=== PATIENT | male | born 1960 | race Caucasian/White ===

== ENCOUNTER 2018-09-17 08:58 | Emergency (ER) | payer OTHER ==
[~2018-09-17] VITALS: Ht 165.1 cm; Wt 65.8 kg
[~2018-09-17 08:58] MED LIST: ASPI-1718 PO; BACL10TA4 PO; ENAL-197 PO; NAPR-54 PO; ORE25 PO; PANT40EC PO
--- NOTE | 2018-09-17 08:58 | NUR ---
PATIENT BIB EMS TO BED 8 AT THIS TIME.
[2018-09-17 09:00] VITALS: BP 115/64
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
--- NOTE | 2018-09-17 09:28 | NUR ---
DR HALE AT BEDSIDE FOR PT EVALUATION
--- NOTE | 2018-09-17 10:10 | NUR ---
PT SITTING UP. AAO X4, FULL CLEAR SPEECH. FOOD TRAY FOR LUNCH PROVIDED.
--- NOTE | 2018-09-17 11:15 | NUR ---
PT AAO X4, FULL CLEAR SPEECH. PT SITTING UP EATING LUNCH. PT TOLERATING FOOD WELL.
--- NOTE | 2018-09-17 11:45 | NUR ---
PT UNABLE TO STAND AT THIS TIME. PT BACK TO BED.
[2018-09-17 13:13] VITALS: BP 106/65
== END 2018-09-17 13:17 | disposition home or self-care (01) ==
LOC: MED 08:58
DX: F10.129 Alcohol abuse with intoxication, unspecified (principal); Z95.0 Presence of cardiac pacemaker; Z79.82 Long term (current) use of aspirin; Z79.1 Long term (current) use of non-steroidal anti-inflammatories (NSAID); Z79.899 Other long term (current) drug therapy; Y90.9 Presence of alcohol in blood, level not specified
CPT/HCPCS: 82948; 93005; 99283

== ENCOUNTER 2018-09-18 10:03 | Inpatient (IN) | payer OTHER ==
[~2018-09-18] VITALS: Ht 167.6 cm; Wt 88.5 kg
--- NOTE | 2018-09-18 10:03 | NUR ---
Patient BAL MCDONOUGH, triaged by RN and transferred to ED lobby to wait for an available bed.
[2018-09-18 10:11] VITALS: BP 104/59
--- NOTE | 2018-09-18 10:33 | NUR ---
PT TO ED WITH C/O L LEG PAIN. DENIES INJURY OR TRAUMA. NO DEFORMITY NOTED. CMS INTACT. PT REPORTS BEING SEEN YESTERDAY IN ED FOR SAME C/C BUT UNABLE TO RECALL TREATMENT. PT PLACED INTO BED, PENDING MD KINGSLEY.
[2018-09-18] MEDS ORDERED: NACL 0.9% 1,000 ML IV ONE (11:22)
[2018-09-18] MEDS ORDERED: MULTIVITAMIN-12 10 ML, THIAMINE 100 MG, MAGNESIUM SULFATE 50% 2,000 MG, FOLIC ACID 5 MG... IV ONE ×5 (11:22)
[2018-09-18] MEDS ORDERED: MULTIVITAMIN-12 10 ML, THIAMINE 100 MG, MAGNESIUM SULFATE 50% 2,000 MG, FOLIC ACID 5 MG... IV SCH ×5 (11:45)
[2018-09-18 12:01] LABS: BASOPHILS # (AUTO) 0.1 K/uL (0.00-0.22); BASOPHILS % (AUTO) 0.7 % (0.0-2.0); EOSINOPHILS # (AUTO) 0.1 K/uL (0-0.4); HEMATOCRIT 40.3 % (36-52); LYMPHOCYTES # (AUTO) 1.3 K/uL (2.0-11.5); LYMPHOCYTES % (AUTO) 16.2 % (20.5-51.1); MEAN CORPUSCULAR HEMOGLOBIN 25 pg (27-31); MEAN CORPUSCULAR HGB CONC 32 g/dL (33-37); MEAN CORPUSCULAR VOLUME 75.9 fL (80-94); MONOCYTES # (AUTO) 0.6 K/uL (0.8-1.0); MONOCYTES % (AUTO) 7.3 % (1.7-9.3); NEUTROPHILS # (AUTO) 6.1 K/uL (1.8-7.7); NEUTROPHILS % (AUTO) 74.8 % (42.2-75.2); PLATELET COUNT (AUTO) 316 K/uL (140-450); RED CELL DISTRIBUTION WIDTH 16.6 % (11.6-13.7); WHITE BLOOD COUNT (AUTO) 8.1 K/uL (4.8-10.8)
[2018-09-18 12:19] LABS: ALBUMIN 3.2 g/dL (3.4-5.0); ANION GAP 17.3 (8-16); CARBON DIOXIDE 23.5 mmol/L (21-32); CREATININE 0.9 mg/dL (0.7-1.3); POTASSIUM 3.8 mmol/L (3.5-5.1); TOTAL BILIRUBIN 0.4 mg/dL (0.0-1.0)
--- NOTE | 2018-09-18 13:19 | NUR ---
PT REMAINS ASLEEP, AROUSBALE TO NAME. BANANA BAG INFUSING.
[2018-09-18] MEDS ORDERED: NITROGLYCERIN 0.4 MG TAB SL PRN (13:20)
[2018-09-18] MEDS ORDERED: MORPHINE SULFATE 2 MG/ML SYR IV PRN (13:20)
[2018-09-18 14:45] VITALS: BP 128/69
--- NOTE | 2018-09-18 14:45 | NUR ---
RECEIVED PATIENT FROM ED. PATIENT IS AAOX4. RESPIRATIONS ARE EVEN AND UNLABORED ON ROOM AIR. PATIENT DENIES ANY CHEST PAIN AT THIS TIME. RIGHT WRIST 22 G IV INTACT, PATENT, AND INFUSING IVF. PLAN OF CARE WAS REVIEWED WITH PATIENT, PATIENT VERBALIZED UNDERSTANDING. SAFETY MEASURES IN PLACE, CALL LIGHT WITHIN REACH. WILL CONTINUE TO MONITOR.
--- NOTE | 2018-09-18 14:57 | NUR ---
Patient will be admitted to care of DR GALVAN. Admited to TELE. Will go to room 125-B. Belongings list completed. Report to MED/TAX ACCOUNTING MANAGER.
[2018-09-18 16:00] VITALS: BP 156/76
[2018-09-18] MEDS: DEXT 5% /NACL 0.9% 1,000 ML IV SCH (16:30)
--- NOTE | 2018-09-18 16:52 | NUR ---
PATIENT IS SLEEPING, EASILY AROUSABLE. DENIES ANY PAIN AT THIS TIME. WILL CONTINUE TO MONITOR.
[2018-09-18] MEDS: ONDANSETRON 4 MG/2 ML VIAL IVP PRN (18:55)
--- NOTE | 2018-09-18 18:59 | NUR ---
PATIENT VOMITED ABOUT 200 ML. ADMINISTERED ZOFRAN PRN IVP. WILL CONTINUE TO MONITOR.
--- NOTE | 2018-09-18 19:21 | NUR ---
ENDORSED TO CUSTOMER TECHNICAL SERVICES MANAGER FOR CONTINUITY OF CARE. PATIENT IS STABLE.
--- NOTE | 2018-09-18 19:25 | NUR ---
RECEIVED PATIENT FROM DAY SHIFT NURSE. PATIENT IS AWAKE, ALERT, AND COOPERATIVE. RESPIRATION EVEN UNLABORED ON ROOM AIR. NO DISTRESS NOTED. SKIN IS WARM AND DRY. IV PATENT AND INTACT. PATIENT IS AMBULATORY AND ABLE TO MAKE NEEDS KNOWN. PLAN OF CARE WAS REVIEWED AND DISCUSSED. ALL SAFETY MEASURES IN PLACE. BED IS AT LOW POSITION. CALL LIGHT WITHIN REACH AND VERBALIZES ITS USE. WILL CONTINUE TO MONITOR.
[2018-09-18 20:00] VITALS: BP 142/73
--- NOTE | 2018-09-18 20:00 | NUR ---
INITIAL ASSESSMENT DONE. VITALS WERE TAKEN. NO DISTRESS NOTED. WILL CONTINUE TO MONITOR.
[2018-09-18] MEDS ORDERED: METOCLOPRAMIDE 10 MG/2 ML INJ VIAL IVP PRN (20:35)
--- NOTE | 2018-09-18 20:52 | NUR ---
PATIENT COMPLAINED OF NAUSEA AND VOMITING. PRN ANTIEMTIC ADMINISTERED PER ODER. WILL CONTINUE TO MONITOR
[2018-09-18 21:58] LABS: BILIRUBIN,URINE 1+ (NEGATIVE); BLOOD, URINE NEGATIVE (NEGATIVE); COLOR,URINE YELLOW (YELLOW); LEUKOCYTE ESTERASE ,URINE TRACE (NEGATIVE); NITRITE, URINE NEGATIVE (NEGATIVE); UGLUCOSE NEGATIVE (NEGATIVE)
[2018-09-18 22:08] LABS: APPEARANCE,URINE HAZY (CLEAR); BARBITURATE, URINE NEG. ng/ml (NEG <=200); BENZODIAZEPINE, URINE NEG. ng/mL (NEG <=200); CANNABINOID, URINE NEG. ng/mL (NEG <=50); COCAINE, URINE NEG. ng/mL (NEG <=300); OPIATE, URINE POS. ng/mL (NEG <=2000); PHENCYCLIDINE SCREEN,URINE NEG. ng/mL (NEG <=25)
[2018-09-18 22:17] LABS: RBC,URINE NONE SEEN /HPF (0-5); WBC,URINE 0-5 /HPF (0-5)
--- NOTE | 2018-09-18 23:00 | NUR ---
PATIENT ACCIDENTALLY REMOVED IV. INSERTED NEW IV TO THE LEFT HAND 24 G TOLERATED WELL. NO ACTIVE BLEEDING NOTED. WILL CONTINUE TO MONITOR.
[2018-09-19] VITALS: BP 121/82
--- NOTE | 2018-09-19 | NUR ---
VITALS WERE TAKEN. PATIENT IS IN STABLE CONDITION. DENIES PAIN. WILL CONTINUE TO MONITOR
[2018-09-19] MEDS: DEXT 5% /NACL 0.9% 1,000 ML IV SCH ×3 (02:39→23:42)
[2018-09-19 08:00] VITALS: BP 139/66
[2018-09-19 08:23] LABS: CARBON DIOXIDE 26.9 mmol/L (21-32); CREATININE 0.9 mg/dL (0.7-1.3); POTASSIUM 3.9 mmol/L (3.5-5.1)
--- NOTE | 2018-09-19 08:24 | NUR ---
PT'S OPENING NOTE WAS WRITTEN ON PAPER, IN PT'S CHART, DUE TO SYSTEM DOWN THIS AM.
[2018-09-19] MEDS: ASPIRIN 81 MG TAB.CHEW PO SCH (09:27)
--- NOTE | 2018-09-19 10:46 | NUR ---
PT HAVING A BED BATH AT THIS TIME. BED LINENS WERE CHANGED.
--- NOTE | 2018-09-19 11:30 | NUR ---
PT C/O HEARTBURN. HE DESCRIBES IT A BURNING SENSATION IN THE MIDDLE OF HIS LOWER CHEST REGION, AND IS ASKING FOR "A COUPLE OF TUMS". PT DENIES PAIN RADIATING. DR DAVENPORT PAGEFrancisco Javier FOR HEARTBURN MEDICATION, TORB MAALOX 30 ML Q6H PO PRN.
[2018-09-19] MEDS: HYDROcodone/APAP 5/325 MG 1 TAB TAB PO PRN ×3 (11:36→22:01)
[2018-09-19] MEDS: ALUMINUM HYD/MAG/SIMETHICONE 30 ML UDC PO PRN ×2 (11:48→18:16)
[2018-09-19 12:00] VITALS: BP 105/69
[2018-09-19 12:42] LABS: BASOPHILS % (AUTO) 0.7 % (0.0-2.0); EOSINOPHILS # (AUTO) 0.2 K/uL (0-0.4); EOSINOPHILS % (AUTO) 2.5 % (0.0-4.0); HEMATOCRIT 35.3 % (36-52); HEMOGLOBIN 11.3 g/dL (12.0-18.0); LYMPHOCYTES # (AUTO) 0.8 K/uL (2.0-11.5); LYMPHOCYTES % (AUTO) 12.8 % (20.5-51.1); MEAN CORPUSCULAR HEMOGLOBIN 25 pg (27-31); MEAN CORPUSCULAR HGB CONC 32 g/dL (33-37); MEAN CORPUSCULAR VOLUME 76.8 fL (80-94); MONOCYTES # (AUTO) 0.7 K/uL (0.8-1.0); MONOCYTES % (AUTO) 10.9 % (1.7-9.3); NEUTROPHILS # (AUTO) 4.4 K/uL (1.8-7.7); NEUTROPHILS % (AUTO) 73.1 % (42.2-75.2); PLATELET COUNT (AUTO) 258 K/uL (140-450); RED BLOOD CELL COUNT(AUTO) 4.59 MIL/uL (4.20-6.10); RED CELL DISTRIBUTION WIDTH 16.8 % (11.6-13.7)
--- NOTE | 2018-09-19 13:40 | NUR ---
PT SEEN BY DR DAVENPORT.
[2018-09-19] MEDS: LORazepam 0.5 MG TAB PO PRN ×2 (13:42→19:48)
--- NOTE | 2018-09-19 15:35 | NUR ---
PT C/O "BURNING" WHILE URINATING. HE REPORTS HAVING THIS BURNING SENSATION TWICE TODAY DURING URINATION. PT'S URINE RESULTS CURRENTLY SHOW 2+ BACTERIA. SAMPLE OF URINE COLLECTED, URINE IS CLEAR YELLOW. DR DAVENPORT PAGED FOR FURTHER GUIDANCE, WAITING FOR CALL BACK.
[2018-09-19 16:00] VITALS: BP 147/64
--- NOTE | 2018-09-19 16:15 | NUR ---
URINE SAMPLE COLLECTED AND SENT TO LAB FOR CULTURE PER MD ORDER.
--- NOTE | 2018-09-19 18:55 | NUR ---
PT C/O FEELING NAUSEOUS, NO EPISODES OF VOMITING TODAY. PRN ZOFRAN ADMINISTERED.
[2018-09-19] MEDS: ONDANSETRON 4 MG/2 ML VIAL IVP PRN (18:56)
--- NOTE | 2018-09-19 19:20 | NUR ---
PT ENDORSED TO INTERNAL COMBUSTION ENGINE SUBASSEMBLER NURSE IN STABLE CONDITION.
--- NOTE | 2018-09-19 19:25 | NUR ---
RECEIVED PT AWAKE SITTING ON BED, AAOX3, FORGETFUL AT TIMES BUT ABLE TO MAKE NEEDS KNOWN, VITAL SIGNS STABLE, DENIES CHEST PAIN BUT FEELING ANXIOUS, WILL MEDICATE WITH ATIVAN PRN, IVF INFUSING WELL, PLAN OF CARE DISCUSSED, SAFETY MEASURES IN PLACE, CALL LIGHT WITHIN REACH.
[2018-09-19 20:00] VITALS: BP 131/76
--- NOTE | 2018-09-19 22:01 | NUR ---
PT AMBULATED TO BR WITH ASSIST DUE TO UNSTEADY GAIT, VOIDED FREELY, PT COMPLAINING OF LOWER BACK PAIN, MEDICATED WITH NORCO, MONITORED CLOSELY.
[2018-09-20] VITALS (7 sets, daily range): BP systolic 121–151; BP diastolic 53–89
[2018-09-20] MEDS: LORazepam 0.5 MG TAB PO PRN ×3 (01:30→20:10)
[2018-09-20] MEDS: HYDROcodone/APAP 5/325 MG 1 TAB TAB PO PRN ×4 (03:54→23:37)
--- NOTE | 2018-09-20 03:55 | NUR ---
VITAL SIGNS STABLE, DENIES ANY CHEST PAIN BUT COMPLAINING OF LOWER BACK PAIN AND PAIN INSIDE THE RECTAL AREA ESPICIALLY WHEN HE IS SITTING DOWN, PT DENIES ANY HX OF HEMORRHOIDS, LAST BM WAS 2 DAYS AGO, MEDICATED PRN WITH NORCO, ENCOURAGE TO LAY DOWN ON HIS SIDE, MONITORED CLOSELY.
[2018-09-20] MEDS: DEXT 5% /NACL 0.9% 1,000 ML IV SCH ×2 (05:19→12:40)
[2018-09-20] MEDS: PANTOPRAZOLE 40 MG TABEC PO SCH (05:34)
--- NOTE | 2018-09-20 05:40 | NUR ---
PT AWAKE ON BED, DUE PO MEDICATION ADMINISTERED, ASSISTED TO USE URINAL, STATED BURNING SENSATION STILL BUT LESS INTENSE THAT YESTERDAY, AWAITING URINE CULTURE RESULT, NO SEIZURE EPISODE THE WHOLE SHIFT, IVF INFUSING WELL, MONITORED CLOSELY.
--- NOTE | 2018-09-20 06:27 | NUR ---
PATIENT HAS BEEN SCREENED AND CATEGORIZED MODERATE NUTRITION RISK. PATIENT WILL BE SEEN WITHIN 3-5 DAYS OF ADMISSION. 09/21/18-09/23/18 NADIYA GARRISON MS, RDN
--- NOTE | 2018-09-20 07:10 | NUR ---
PT AWAKE, NO DISTRESS NOTED, BEDSIDE REPORT GIVEN TO TERESSA NIEVES FOR CONTINUITY OF CARE.
--- NOTE | 2018-09-20 07:11 | NUR ---
RECEIVED REPORT FROM ROTARY CUTTER OPERATOR NURSE. PATIENT SITTING DOWN IN BED, ASSISTED TO BATHROOM AND BACK TO BED. UNSTEADY GAIT. DENIES ANY PAIN AT THIS TIME. AAOX3, CALM, COOPERATIVE, SKIN COLOR APPROPRIATE TO ETHNICITY, WARM TO TOUCH. HAS LEFT KNEE OPEN WOUND, RIGHT KNEE CLOSED SCAB, AND LEFT UPPER ARM CLOSED SCAB. IV SITE INTACT, PATENT, AND INFUSING IVF PER MD ORDERS. RESPIRATIONS EVEN, UNLABORED, ON ROOM AIR. REVIEWED PLAN OF CARE WITH PATIENT. PATIENT VERBALIZED UNDERSTANDING. SAFETY MEASURES IN PLACE, CALL LIGHT WITHIN REACH. WILL CONTINUE TO MONITOR.
[2018-09-20 07:45] LABS: BASOPHILS % (AUTO) 0.8 % (0.0-2.0); EOSINOPHILS # (AUTO) 0.2 K/uL (0-0.4); HEMATOCRIT 36.1 % (36-52); HEMOGLOBIN 11.7 g/dL (12.0-18.0); LYMPHOCYTES % (AUTO) 18.6 % (20.5-51.1); MEAN CORPUSCULAR HEMOGLOBIN 25 pg (27-31); MEAN CORPUSCULAR HGB CONC 33 g/dL (33-37); MEAN CORPUSCULAR VOLUME 77.1 fL (80-94); MONOCYTES # (AUTO) 0.5 K/uL (0.8-1.0); NEUTROPHILS # (AUTO) 3.5 K/uL (1.8-7.7); NEUTROPHILS % (AUTO) 66.6 % (42.2-75.2); PLATELET COUNT (AUTO) 252 K/uL (140-450); RED BLOOD CELL COUNT(AUTO) 4.68 MIL/uL (4.20-6.10); RED CELL DISTRIBUTION WIDTH 16.7 % (11.6-13.7); WHITE BLOOD COUNT (AUTO) 5.3 K/uL (4.8-10.8)
[2018-09-20 08:04] LABS: CREATININE 0.9 mg/dL (0.7-1.3)
[2018-09-20 08:10] LABS: MAGNESIUM 2.2 mg/dL (1.8-2.4); PHOSPHORUS 2.5 mg/dL (2.5-4.9)
[2018-09-20] MEDS: ASPIRIN 81 MG TAB.CHEW PO SCH (08:51)
[2018-09-20] MEDS: BACLOFEN 10 MG TAB PO SCH (08:51)
[2018-09-20] MEDS: HYDROCHLOROTHIAZIDE 25 MG TAB PO SCH (08:52)
[2018-09-20] MEDS: ENALAPRIL 10 MG TAB PO SCH (08:52)
--- NOTE | 2018-09-20 08:55 | NUR ---
PATIENT LYING DOWN IN BED SLEEPING, AROUSABLE BY VOICE. NO DISTRESS NOTED. DENIES ANY PAIN AT THIS TIME. SCHEDULED MEDICATIONS DUE GIVEN. WILL CONTINUE TO MONITOR.
[2018-09-20] MEDS ORDERED: ASPIRIN 81 MG TAB.CHEW PO SCH (09:00)
--- NOTE | 2018-09-20 10:09 | NUR ---
PATIENT FEELING ANXIOUS, ATIVAN GIVEN AT THIS TIME. WILL CONTINUE TO MONITOR.
--- NOTE | 2018-09-20 11:46 | NUR ---
PATIENT COMPLAINS OF PAIN, NORCO GIVEN AT THIS TIME. SCHEDULED MEDICATIONS DUE GIVEN. WILL CONTINUE TO MONITOR.
--- NOTE | 2018-09-20 14:30 | NUR ---
DR. DAVENPORT AT BEDSIDE REVIEWING PLAN OF CARE WITH PATIENT. WILL CONTINUE TO MONITOR.
--- NOTE | 2018-09-20 16:00 | NUR ---
PATIENT COMPLAINS OF PAIN ON ANUS, NORCO GIVEN AT THIS TIME. WILL CONTINUE TO MONITOR.
--- NOTE | 2018-09-20 17:48 | NUR ---
ASSISTED PATIENT TO BATHROOM AND BACK TO CHAIR AT BEDSIDE PER PATIENT REQUESTS SO HE CAN EAT DINNER. WILL CONTINUE TO MONITOR.
--- NOTE | 2018-09-20 19:29 | NUR ---
GAVE REPORT TO CAREER REPRESENTATIVE NURSE FOR CONTINUITY OF CARE. PATIENT IN STABLE CONDITION.
--- NOTE | 2018-09-20 19:30 | NUR ---
RECEIVED BEDSIDE REPORT FROM DAY SHIFT RN LIZBETH. PATIENT SLEEPING IN BED, NO SIGNS OF ACUTE DISTRESS, IV IN LEFT HAND 24 G SL. PATIENT ON RA, ON FALL AND SEIZURE PRECAUTIONS. CALL LIGHT WITHIN REACH, WILL CONTINUE TO MONITOR.
--- NOTE | 2018-09-20 20:15 | NUR ---
PATIENT C/O ANXIETY GAVE ATIVAN
[2018-09-20] MEDS: ONDANSETRON 4 MG/2 ML VIAL IVP PRN (20:39)
--- NOTE | 2018-09-20 20:44 | NUR ---
PATIENT C/O FEELING NAUSEOUS GAVE ZOFRAN
--- NOTE | 2018-09-20 22:37 | NUR ---
CLEANED LEFT KNEE SCAB AND LEFT ELBOW SCAB, PLACED DRESSING ON, PATIENT BECAME FRUSTRATED WITH CLEANSING AND ASKED TO HURRY UP, ASKED IF WANTED TO HAVE TAPE TO KEEP DRESSING IN PLACE PATIENT STATED NO.
--- NOTE | 2018-09-20 23:37 | NUR ---
PATIENT C/O PAIN GAVE NORCO
--- NOTE | 2018-09-21 02:23 | NUR ---
PATIENT REQUESTED TO HAVE DOCTOR ORDER A STRONG SLEEPING PILL. WILL ENDORSE TO DAY SHIFT NURSE.
[2018-09-21 04:00] VITALS: BP 135/80
[2018-09-21] MEDS: LORazepam 0.5 MG TAB PO PRN ×2 (04:01→13:00)
--- NOTE | 2018-09-21 04:01 | NUR ---
PATIENT C/O ANXIETY WILL GIVE ATIVAN
[2018-09-21] MEDS: PANTOPRAZOLE 40 MG TABEC PO SCH (06:12)
--- NOTE | 2018-09-21 06:19 | NUR ---
DUE PROTONIX GIVEN
[2018-09-21 07:16] LABS: BASOPHILS # (AUTO) 0.1 K/uL (0.00-0.22); BASOPHILS % (AUTO) 1.4 % (0.0-2.0); EOSINOPHILS # (AUTO) 0.2 K/uL (0-0.4); HEMATOCRIT 36.3 % (36-52); HEMOGLOBIN 11.8 g/dL (12.0-18.0); LYMPHOCYTES # (AUTO) 1.2 K/uL (2.0-11.5); LYMPHOCYTES % (AUTO) 24.7 % (20.5-51.1); MEAN CORPUSCULAR HEMOGLOBIN 25 pg (27-31); MEAN CORPUSCULAR HGB CONC 32 g/dL (33-37); MEAN CORPUSCULAR VOLUME 76.7 fL (80-94); MONOCYTES # (AUTO) 0.5 K/uL (0.8-1.0); MONOCYTES % (AUTO) 9.4 % (1.7-9.3); NEUTROPHILS # (AUTO) 2.9 K/uL (1.8-7.7); NEUTROPHILS % (AUTO) 60.5 % (42.2-75.2); PLATELET COUNT (AUTO) 261 K/uL (140-450); RED BLOOD CELL COUNT(AUTO) 4.74 MIL/uL (4.20-6.10); RED CELL DISTRIBUTION WIDTH 17.1 % (11.6-13.7); WHITE BLOOD COUNT (AUTO) 4.8 K/uL (4.8-10.8)
--- NOTE | 2018-09-21 07:17 | NUR ---
ENDORSED PATIENT TO DAY SHIFT NURSE, PATIENT STABLE.
--- NOTE | 2018-09-21 07:21 | NUR ---
RECEIVED BEDSIDE REPORT FROM DEVELOPMENT TECHNICAL LEAD RN SUMMER. PATIENT SLEEPING IN BED, NO SIGNS OF ACUTE DISTRESS, IV IN LEFT HAND 24 G SL. PATIENT ON RA, ON FALL AND SEIZURE PRECAUTIONS. ENVIRONMENTAL CHECK DONE. EXPLAINED PLAN OF CARE WITH PT. PT VERBALIZED UNDERSTANDING. CALL LIGHT WITHIN REACH, WILL MONITOR PT FREQUENTLY.
[2018-09-21 07:34] LABS: ANION GAP 11.9 (8-16); CARBON DIOXIDE 28.8 mmol/L (21-32); CREATININE 0.9 mg/dL (0.7-1.3); POTASSIUM 3.7 mmol/L (3.5-5.1)
[2018-09-21 07:41] LABS: MAGNESIUM 2.1 mg/dL (1.8-2.4); PHOSPHORUS 3.1 mg/dL (2.5-4.9)
[2018-09-21 08:00] VITALS: BP 144/86
[2018-09-21] MEDS: HYDROCHLOROTHIAZIDE 25 MG TAB PO SCH (09:07)
[2018-09-21] MEDS: ASPIRIN 81 MG TAB.CHEW PO SCH (09:07)
[2018-09-21] MEDS: BACLOFEN 10 MG TAB PO SCH (09:10)
[2018-09-21] MEDS: ENALAPRIL 10 MG TAB PO SCH (09:11)
--- NOTE | 2018-09-21 09:27 | NUR ---
ADMINISTERED MORNING MEDS TO PT. PT TOLERATED THEM WELL. ALL NEEDS CURRENTLY MET. WILL ROUND FREQUENTLY ON PT.
--- NOTE | 2018-09-21 11:47 | NUR ---
PT RESTING IN BED WITH FAMILY AT BEDSIDE. NO REPORTS OF PAIN OR DISTRESS AT THIS TIME. WILL CONTINUE TO ROUND FREQUENTLY ON PT. BED IN LOW POSITION, CALL LIGHT WITHIN REACH.
[2018-09-21 12:00] VITALS: BP 117/66
--- NOTE | 2018-09-21 13:37 | NUR ---
PT RESTING IN BED TALKING WITH FAMILY. PT IN GOOD SPIRITS AT THIS TIME.WILL [id number] TO ROUND FREQUENTLY.
--- NOTE | 2018-09-21 14:38 | NUR ---
DR. DAVENPORT SAW PT. PT NOTIFIED THAT HE WILL BE DISCHARGED SOON DR. MA GIVES OK GO TO HOME. PT AWARE THAT HE WILL BE DISCHARGED TODAY OR TOMORROW. PT IS CURRENTLY HOMELESS. RESOURCE PACKET GIVEN SO PT CAN START CALLING SHELTERS. WILL GIVE FURTHER INSTRUCTIONS TO PT ABOUT DISCHARGE WHEN DR. MA SEES PT.
--- NOTE | 2018-09-21 14:47 | NUR ---
09/21/18 RD INITIAL ASSESSMENT COMPLETED PLEASE REFER TO NUTRITION ASSESSMENT UNDER CARE ACTIVITY FOR ESTIMATED NUTRITIONAL NEEDS. 1. CONTINUE CARDIAC DIET TOLERATED 2. EDUCATION ON CARDIAC/TLC DIET WAS PROVIDED 3. RD TO FOLLOW-UP 5-7 DAYS, LOW RISK ROGER ENGLE RD
--- NOTE | 2018-09-21 15:47 | NUR ---
PT IN RESTROOM. KNOCKED ON DOOR AND PT VERBALIZED HE IS FINE. I TOLE PT TO USE CALL LIGHT IN RESTROOM IF ANY ASSISTANCE WAS REQUIRED. PT VERBALIZED UNDERSTANDING. WILL ROUND FREQUENTLY ON PT.
[2018-09-21 16:00] VITALS: BP 108/74
--- NOTE | 2018-09-21 16:30 | NUR ---
PAGED JOSH MAYORGA REGARDING CLEARANCE FOR DISCHARGE. AWAITING FOR CALL BACK.
--- NOTE | 2018-09-21 16:36 | NUR ---
DR. FRANCESCA Travis CALLED BACK, STATED HE WILL BE HERE IN A HOUR.
--- NOTE | 2018-09-21 17:41 | NUR ---
PT SLEEPING IN BED. ALL NEEDS CURRENTLY MET. NO SIGNS OF PAIN OR DISTRESS NOTED. WILL ROUND FREQUENTLY ON PT.
--- NOTE | 2018-09-21 18:49 | NUR ---
PT DISCHARGE PAPERWORK EXPLAINED TO PT. PT VERBALIZED UNDERSTANDING OF TEACHING. DISCHARGE PRESCRIPTIONS GIVEN TO PT. TOLD PT THAT HE COULD GET HIS PRESCRIPTIONS FILLED AT HIS USUAL PHARMACY. BUS FAIR ALSO GIVEN TO PT. IV REMOVED WITH TIP INTACT. PT WAS GIVEN RESOURCE PACKET WITH SHELTERS INFO. PT WAS GIVEN FRESH CLOTHING TO DISCHARGE IN. WILL ENDORSE DISCHARGE TO CIGAR PATCHER TERESSA ROMERO.
--- NOTE | 2018-09-21 19:52 | NUR ---
ENDORSED PT TO OPTICAL GLASS SAWYER TERESSA ROMERO FOR DISCHARGE. PT IN STABLE CONDITION AT THIS TIME.
--- NOTE | 2018-09-21 19:54 | NUR ---
RECEIVED BEDSIDE REPORT FROM ALBIN GANNON. PT IS AAO X4. AMBULATORY ON ROOM AIR. RESPIRATIONS ARE EQUAL AND UNLABORED. D/C PAPER WORK COMPLETE BY RN PAPER SIGN AND IV WAS REMOVED. PT IS HOMELESS CLOTHING AND BUS PASS GIVEN WELL RESOURCE PACKET. OFFERED TO CALL FAMILY. PT DOESN'T WANT TO LEAVE HOSPITAL. EXPLAINED HE HAS ALREADY BEEN D/C AND NEEDS TO GO TO ER IF FEELS NEEDS TO BE READMITTED. VITAL SIGNS ARE WITHIN NORMAL LIMITS. WILL CALL VIDEO CONFERENCE SPECIALIST AND SECURITY.
[2018-09-21 20:00] VITALS: BP 137/88
--- NOTE | 2018-09-21 20:10 | NUR ---
COMMERCIAL PROPERTY ADMINISTRATOR AND SECURITY AT BEDSIDE. WILL CONTINUE TO MONITOR.
--- NOTE | 2018-09-21 20:22 | NUR ---
PATIENT WAS WHEELED OUT OF UNIT WITH SECURITY AND TAILORING TEACHER. PT LEFT IN STABLE CONDITION. REEDUCATED PATIENT TO COME BACK TO ER IF HE INST FEELING WELL. NO S/S OF DISTRESS. PT VERBALIZED UNDERSTANDING.
== END 2018-09-21 20:20 | disposition home or self-care (01) | DRG 190 ==
LOC: MED 10:03 → MMU 14:18 → MTU 16:22
PROVIDERS: ADMIT Internal Medicine; ATTEND Internal Medicine
DX: I21.4 Non-ST elevation (NSTEMI) myocardial infarction (principal); E44.1 Mild protein-calorie malnutrition; F10.229 Alcohol dependence with intoxication, unspecified; I10 Essential (primary) hypertension; K21.9 Gastro-esophageal reflux disease without esophagitis; F10.239 Alcohol dependence with withdrawal, unspecified; S80.12XA Contusion of left lower leg, initial encounter; Z95.0 Presence of cardiac pacemaker; Z59.0 Homelessness; Z60.2 Problems related to living alone; S80.212A Abrasion, left knee, initial encounter; X58.XXXA Exposure to other specified factors, initial encounter; Y93.89 Activity, other specified; Y92.89 Other specified places as the place of occurrence of the external cause; Y99.8 Other external cause status; Y90.9 Presence of alcohol in blood, level not specified
CPT/HCPCS: 36415; 71045; 73590; 80048; 80053; 80305; 81001; 83036; 83735; 84100; 84484; 85025; 87081; 87086; 93005; 96361; 96365; 96366; 97116; 97161-GP; 99285; A9153; G0482; J2270; J2405; J2765; J3411; J3475; J3490; J7030; J7042; Q0092

== ENCOUNTER 2018-09-21 20:32 | Emergency (ER) | payer OTHER ==
[~2018-09-21] VITALS: Ht 167.6 cm; Wt 81.6 kg
[2018-09-21 21:06] VITALS: BP 136/82
--- NOTE | 2018-09-21 21:08 | NUR ---
PATIENT AMBULATED BACK TO ER LOBBY WITH STEADY GAIT, GCS 15
--- NOTE | 2018-09-21 22:58 | NUR ---
PT CALLED NO ANSWER AT THIS TIME.
--- NOTE | 2018-09-21 23:09 | NUR ---
PT AMBULATED TO BED 2
[2018-09-22] MEDS ORDERED: DICYCLOMINE HCL LIQUID 20 MG, ALUMINUM HYD/MAG/SIMETHICONE 30 ML, LIDOCAINE VISCOUS 2% ... PO ONE ×3 (00:20)
--- NOTE | 2018-09-22 00:24 | NUR ---
HOUSE SUP. NOTIFIED OF MISSING MED, WILL FOLLOW UP.
[2018-09-22] MEDS ORDERED: DICYCLOMINE HCL LIQUID 10 MG/5 ML UDC ONE (00:32)
[2018-09-22] MEDS ORDERED: LIDOCAINE VISCOUS 2% 20 ML UDC ONE (00:32)
[2018-09-22] MEDS ORDERED: MAGNESIUM HYDROXIDE 2400 MG/30 ML UDC ONE (00:37)
[2018-09-22 00:49] VITALS: BP 145/78
--- NOTE | 2018-09-22 00:51 | NUR ---
Patient discharged with v/s stable. Written and verbal after care instructions given and explained. Patient alert, oriented and verbalized understanding of instructions. Ambulatory with steady gait. All questions addressed prior to discharge. ID band removed. Patient advised to follow up with PMD. Rx of BACITRACIN, DIPHENAHYDRAMINE given. Patient educated on indication of medication including possible reaction and side effects. Opportunity to ask questions provided and answered. PT HAS HOMELESS RESOURCES FROM D/C FROM HOSPITAL EARLIER.
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
--- NOTE | 2018-09-22 11:00 | NUR ---
CALLED OFFICE OF DR REYES [phone], SPOKE TO ALINA, APPOINTMENT MADE ON 09/24/18 AT 230PM, [address] [place] [address].
--- NOTE | 2018-09-22 13:59 | NUR ---
CALLED OFFICE OF DR REYES AND CANCELLED APPOINTMENT SINCE PATIENT CANT BE REACH AND NO PHONE NUMBER.
== END 2018-09-22 00:51 | disposition home or self-care (01) ==
LOC: MED 20:32
DX: S80.212A Abrasion, left knee, initial encounter (principal); S80.211A Abrasion, right knee, initial encounter; G47.00 Insomnia, unspecified; I10 Essential (primary) hypertension; Z95.0 Presence of cardiac pacemaker; Z79.82 Long term (current) use of aspirin; Z79.899 Other long term (current) drug therapy; W01.0XXA Fall on same level from slipping, tripping and stumbling without subsequent striking against object, initial encounter; Y93.89 Activity, other specified; Y92.091 Bathroom in other non-institutional residence as the place of occurrence of the external cause; Y99.8 Other external cause status
CPT/HCPCS: 99283

== ENCOUNTER 2018-09-28 02:18 | Emergency (ER) | payer OTHER ==
[~2018-09-28] VITALS: Ht 167.6 cm; Wt 88.5 kg
[2018-09-28 02:20] VITALS: BP 147/58
--- NOTE | 2018-09-28 02:20 | NUR ---
PT WAS WHEELCHAIRED TO BED #11
--- NOTE | 2018-09-28 02:30 | NUR ---
PT BIB SELF C/O BL FOOT PAIN. PT STATES CHRONIC FOOT PAIN BL, STATES PAIN IS WORSE TODAY BECAUSE HE WAS WALKING ALL DAY; STATES 7/10 ACHING PAIN TO BL FEET; DENIES TRAUMA OR INJURY. FEET WARM, DRY AND SKIN INTACT; +STRONG DORSAL PULSE WNL BL; MILD REDNESS AND SWELLING, AMBULATED W/O ASSISTANCE. PT IN BED; SAFETY PRECAUTION IN PLACE. ERMD AWARE OF PT STATUS.
[2018-09-28] MEDS ORDERED: IBUPROFEN 800 MG TAB PO ONE (02:45)
--- NOTE | 2018-09-28 02:45 | NUR ---
PT SITTING IN CHAIR AT BEDSIDE SOAKING BL FEET IN WARM WATER BATH.
--- NOTE | 2018-09-28 03:29 | NUR ---
PT FEET REMOVED FROM WATER BATH, DRY SOCKS APPLIED. PT PLACED IN BED, COMFORT MEASURES PROVIDED.
[2018-09-28 05:00] VITALS: BP 128/56
--- NOTE | 2018-09-28 05:20 | NUR ---
PT STATES 7/10 PAIN, WOULD LIKE SOMETHING MORE FOR PAIN. ERMD AWARE, ORDERS TO FOLLOW.
[2018-09-28] MEDS ORDERED: HYDROcodone/APAP 5/325 MG 1 TAB TAB PO ONE (05:35)
--- NOTE | 2018-09-28 05:45 | NUR ---
PAIN MEDICATION ADMINISTERED, PT POSITIONED FOR COMFORT. PT ACTING APPROPRIATLY, BREATHING EQUAL AND UNLABORED; SPEAKING IN CLEAR AND COMPLETE SENTENCES. WILL CONTINUE TO MONITOR.
--- NOTE | 2018-09-28 06:35 | NUR ---
Sack lunch and bus pass provided to PT.
== END 2018-09-28 06:35 | disposition home or self-care (01) ==
LOC: MED 02:18
DX: M79.671 Pain in right foot (principal); M79.672 Pain in left foot; I10 Essential (primary) hypertension; Z59.0 Homelessness; Z79.82 Long term (current) use of aspirin; Z79.899 Other long term (current) drug therapy; Z95.0 Presence of cardiac pacemaker; X58.XXXA Exposure to other specified factors, initial encounter; Y93.01 Activity, walking, marching and hiking; Y92.89 Other specified places as the place of occurrence of the external cause; Y99.8 Other external cause status
CPT/HCPCS: 99283

== ENCOUNTER 2018-10-11 19:07 | Emergency (ER) | payer OTHER ==
[~2018-10-11] VITALS: Ht 167.6 cm; Wt 86.2 kg
[~2018-10-11 19:07] MED LIST changes: -NAPR-54 PO
--- NOTE | 2018-10-11 19:07 | NUR ---
Patient BIBA BLS, transferred to bed 6. RN evaluating patient at bedside.
[2018-10-11 19:14] VITALS: BP 108/59
--- NOTE | 2018-10-11 19:25 | NUR ---
PT BIBA C/O BL LEG PAIN. PT STATES HE WAS WALKING YEST AND FEEL STEPPING ONTO A CURB, RIGHT KNEE ABRASION, ABRASION ABOVE AND UNDER RIGHT EYE, BRUSING AND REDNESS TO RIGHT EYE; +SCABBING, -NO BLEEDING OR DISCHARGE TO SITES AT THIS TIME. PT STATES PAIN IN LEGS HAVE BEEN WORSE TODAY AND STATES "I BETTER JUST GET CHECKED OUT". PT STATES 9/10 CONSTANT ACHING PAIN TO BL LEGS; +EDEMA, SKIN IS TIGHT AND SHINNY IN APPEARANCE; +PEDIAL PULSES EQUAL BL, CAP REFIL <2. PT IS ACTING APPROPRIATLY, SPEAKING IN CLEAR AND COMPLETE SENTENCES. BREATHING EQUAL AND UNLABORED. DENIES N/V/D. PMH: HTN RX: HYDROCHLOROTHIAZIDE (UNKNOWN LAST TIME PT TOOK IT) Addendum: 10/11/18 at 1950 by [email or web address] PT BIBA C/O BL LEG PAIN. PT STATES HE WAS WALKING YEST AND FEEL STEPPING ONTO A CURB, RIGHT KNEE ABRASION, ABRASION ABOVE AND UNDER RIGHT EYE, BRUSING AND REDNESS TO RIGHT EYE; +SCABBING, -NO BLEEDING OR DISCHARGE TO SITES AT THIS TIME. PT STATES PAIN IN LEGS HAVE BEEN WORSE TODAY AND STATES "I BETTER JUST GET CHECKED OUT". PT STATES 9/10 CONSTANT ACHING PAIN TO BL LEGS; +EDEMA, SKIN IS TIGHT AND SHINNY IN APPEARANCE; +PEDIAL PULSES EQUAL BL, CAP REFIL <2. PT IS ACTING APPROPRIATLY, SPEAKING IN CLEAR AND COMPLETE SENTENCES. BREATHING EQUAL AND UNLABORED. DENIES N/V/D. ERMD AWARE OF PT STATUS. WILL CONTINUE TO MONITOR. PMH: HTN, PACEMAKER RX: HYDROCHLOROTHIAZIDE (UNKNOWN LAST TIME PT TOOK IT)
[2018-10-11 19:49] LABS: BASOPHILS # (AUTO) 0.1 K/uL (0.00-0.22); BASOPHILS % (AUTO) 0.6 % (0.0-2.0); EOSINOPHILS # (AUTO) 0.2 K/uL (0-0.4); EOSINOPHILS % (AUTO) 2.3 % (0.0-4.0); HEMOGLOBIN 11.3 g/dL (12.0-18.0); LYMPHOCYTES # (AUTO) 1.2 K/uL (2.0-11.5); LYMPHOCYTES % (AUTO) 14.1 % (20.5-51.1); MEAN CORPUSCULAR HEMOGLOBIN 25 pg (27-31); MEAN CORPUSCULAR HGB CONC 31 g/dL (33-37); MEAN CORPUSCULAR VOLUME 78.9 fL (80-94); MONOCYTES # (AUTO) 0.7 K/uL (0.8-1.0); MONOCYTES % (AUTO) 7.9 % (1.7-9.3); NEUTROPHILS # (AUTO) 6.3 K/uL (1.8-7.7); NEUTROPHILS % (AUTO) 75.1 % (42.2-75.2); PLATELET COUNT (AUTO) 309 K/uL (140-450); RED BLOOD CELL COUNT(AUTO) 4.57 MIL/uL (4.20-6.10); RED CELL DISTRIBUTION WIDTH 17.7 % (11.6-13.7); WHITE BLOOD COUNT (AUTO) 8.4 K/uL (4.8-10.8)
[2018-10-11 19:59] LABS: CARBON DIOXIDE 27.5 mmol/L (21-32); CREATININE 1.2 mg/dL (0.7-1.3); POTASSIUM 3.5 mmol/L (3.5-5.1)
[2018-10-11 20:05] LABS: ALBUMIN 2.8 g/dL (3.4-5.0); TOTAL BILIRUBIN 0.4 mg/dL (0.0-1.0)
[2018-10-11] MEDS ORDERED: FUROSEMIDE 40 MG TAB PO ONE (20:25)
--- NOTE | 2018-10-11 20:25 | NUR ---
PT C/O OF HEARTBURN. ERMD AWARE, WILL FOLLOW UP WITH DR HO.
[2018-10-11] MEDS ORDERED: PANTOPRAZOLE 40 MG TABEC PO ONE (20:35)
--- NOTE | 2018-10-11 21:16 | NUR ---
Patient discharged with v/s stable. Written and verbal after care instructions given and explained. Patient alert, oriented and verbalized understanding of instructions. Ambulatory with steady gait. All questions addressed prior to discharge. ID band removed. Patient advised to follow up with PMD. Rx of LASIX, GABAPENTIN given. Patient educated on indication of medication including possible reaction and side effects. Opportunity to ask questions provided and answered. PT PROVIDED WITH WILVER PASS, [employer], AND [employer]RA[employer] RESOURCE PACKET. WILL CALL SECURITY FOR JACKET FOR PT.
[2018-10-11 21:17] VITALS: BP 131/65
== END 2018-10-11 21:17 | disposition home or self-care (01) ==
LOC: MED 19:07
DX: R60.0 Localized edema (principal); G25.81 Restless legs syndrome; I10 Essential (primary) hypertension; Z95.0 Presence of cardiac pacemaker; Z79.82 Long term (current) use of aspirin; Z79.899 Other long term (current) drug therapy
CPT/HCPCS: 36415; 80053; 83880; 85025; 99283

== ENCOUNTER 2018-10-13 13:00 | Inpatient (IN) | payer OTHER ==
[~2018-10-13] VITALS: Ht 167.6 cm; Wt 86.2 kg
[2018-10-13 13:05] VITALS: BP 114/56
--- NOTE | 2018-10-13 13:05 | NUR ---
PATIENT TO BED 6 BY EMS AT THIS TIME.
--- NOTE | 2018-10-13 13:25 | NUR ---
DR. GUTIERRES AT BEDSIDE EVALUATING PATIENT AT THIS TIME.
[2018-10-13] MEDS ORDERED: FUROSEMIDE 100 MG/10 ML VIAL IVP ONE (13:35)
--- NOTE | 2018-10-13 13:54 | NUR ---
PT BIBA FOR BL LOWER LEG PAIN FOR 3 WEEKS, PT REPORTS CONSTANT SHARP PAIN IN BL FEET AND LEGS. 2+ PITTING EDEMA BL FEET AND LEGS, ABRASION ON RT KNEE. PT WAS SEEN IN ER LAST WEEK FOR SAME S/S AND C/O CONTINUED PAIN AND SWELLING. VSS. ER MD TO SEE PT. BS 124 PMH PACEMAKER, HTN
[2018-10-13 14:02] LABS: BASOPHILS # (AUTO) 0.1 K/uL (0.00-0.22); BASOPHILS % (AUTO) 0.6 % (0.0-2.0); EOSINOPHILS # (AUTO) 0.1 K/uL (0-0.4); EOSINOPHILS % (AUTO) 1.6 % (0.0-4.0); HEMATOCRIT 35.8 % (36-52); HEMOGLOBIN 11.5 g/dL (12.0-18.0); LYMPHOCYTES # (AUTO) 0.9 K/uL (2.0-11.5); LYMPHOCYTES % (AUTO) 10.4 % (20.5-51.1); MEAN CORPUSCULAR HEMOGLOBIN 25 pg (27-31); MEAN CORPUSCULAR HGB CONC 32 g/dL (33-37); MEAN CORPUSCULAR VOLUME 78.8 fL (80-94); MONOCYTES # (AUTO) 0.8 K/uL (0.8-1.0); MONOCYTES % (AUTO) 9.5 % (1.7-9.3); NEUTROPHILS # (AUTO) 6.6 K/uL (1.8-7.7); NEUTROPHILS % (AUTO) 77.9 % (42.2-75.2); PLATELET COUNT (AUTO) 307 K/uL (140-450); RED BLOOD CELL COUNT(AUTO) 4.54 MIL/uL (4.20-6.10); RED CELL DISTRIBUTION WIDTH 17.5 % (11.6-13.7); WHITE BLOOD COUNT (AUTO) 8.4 K/uL (4.8-10.8)
--- NOTE | 2018-10-13 14:10 | NUR ---
PT BP 95/48, LASIX NOT ADMINISTERED, ER MADE AWARE.
--- NOTE | 2018-10-13 14:14 | NUR ---
XRAY WILL COME BACK
[2018-10-13 14:16] LABS: ANION GAP 11.3 (8-16); CARBON DIOXIDE 28.9 mmol/L (21-32); CREATININE 1.6 mg/dL (0.7-1.3); POTASSIUM 4.2 mmol/L (3.5-5.1)
[2018-10-13 14:19] LABS: PROTHROMBIN TIME 10.2 secs (10.8-13.4)
[2018-10-13 14:22] LABS: ALBUMIN 2.9 g/dL (3.4-5.0); TOTAL BILIRUBIN 0.3 mg/dL (0.0-1.0)
--- NOTE | 2018-10-13 14:44 | NUR ---
XRAY AT BEDSIDE.
[2018-10-13 14:57] LABS: APPEARANCE,URINE CLEAR (CLEAR); BILIRUBIN,URINE NEGATIVE (NEGATIVE); BLOOD, URINE NEGATIVE (NEGATIVE); COLOR,URINE YELLOW (YELLOW); LEUKOCYTE ESTERASE ,URINE NEGATIVE (NEGATIVE); NITRITE, URINE NEGATIVE (NEGATIVE); UGLUCOSE NEGATIVE (NEGATIVE)
[2018-10-13 15:18] LABS: BARBITURATE, URINE NEG. ng/ml (NEG <=200); BENZODIAZEPINE, URINE NEG. ng/mL (NEG <=200); CANNABINOID, URINE NEG. ng/mL (NEG <=50); COCAINE, URINE NEG. ng/mL (NEG <=300); OPIATE, URINE NEG. ng/mL (NEG <=2000); PHENCYCLIDINE SCREEN,URINE NEG. ng/mL (NEG <=25)
--- NOTE | 2018-10-13 16:15 | NUR ---
Patient will be admitted to care of [facility]. Admited to TELE VIA GURNEY WITH VSS. Will go to room 122A. Belongings list completed. Report to KALI GANNON.
--- NOTE | 2018-10-13 16:15 | NUR ---
RECEIVED REPORT FROM ED NURSE. PT AAOX4, TRANSPORTED VIA GURNEY, TRANSFERRED TO [facility] BED WITH IMPAIRED GAIT. RESPIRATIONS EVEN AND UNLABORED ON RA. IV ON LT AC 20 GA ON SALINE LOCK, DRESSING CLEAN, DRY AND INTACT. ACTIVE BOWEL SOUNDS, LBM 10/12. NO C/O PAIN AT THIS TIME. SKIN COLOR IS APPROPRIATE TO ETHNICITY, WARM TO TOUCH, SKIN ABRASION TO RT KNEE LEFT OPEN TO AIR. EDEMA NOTED TO BILAT LOWER EXTREMETIES, 1+ TO RIGHT AND 2+ TO LEFT LEG. EXPLAINED CURRENT PLAN OF CARE WITH PT, PT VERBALIZED UNDERSTANDING. WILL CONTINUE TO MONITOR.
[2018-10-13] MEDS ORDERED: ONDANSETRON 4 MG/2 ML VIAL IVP PRN (17:10)
[2018-10-13] MEDS ORDERED: ALBUTEROL 0.083% 2.5 MG/3 ML NEBU INH PRN (17:10)
--- NOTE | 2018-10-13 17:30 | NUR ---
Dr Brown came in to see pt, received order to cont all previous home meds. Orders noted.
[2018-10-13] MEDS: ACETAMINOPHEN 325 MG TAB PO PRN (18:03)
--- NOTE | 2018-10-13 19:30 | NUR ---
WILL ENDORSE PT TO DIRECTOR LIFE SALES NURSE. PT HAS NO SIGNS OF DISTRESS AT THIS TIME.
--- NOTE | 2018-10-13 19:35 | NUR ---
RECEIVED FROM AM RN IN BED AWAKE AND ALERT. WATCHING TV AND ABLE TO COMMUNICATE WELL WITH ME AND CARE GIVERS. DX. OF CHF, INCREASED TROPONIN AND EDEMA TO LOWER EXTREMITIES. CALL LIGHT WITH IN REACH AND CARE PLANS FOR THE NIGHT DISCUSSED WITH HIM. ON TELEMETRY MONITORING. IVF SITE TO LAC#20 INTACT AND WITH GOOD BLOOD RETURN.
[2018-10-13 21:01] VITALS: BP 103/58
--- NOTE | 2018-10-13 22:00 | NUR ---
STILL AWAKE AND WATCHING TV. REQUESTED FOR A SNACK. PROVIDED WITH A SANDWICH. NO FURTHER COMPLAINTS DONE. CALL LIGHT WITH IN REACH. NO SOB.
--- NOTE | 2018-10-13 23:22 | NUR ---
PT. SLEEPING AT THIS TIME. NO COMPLAINTS DONE.
[2018-10-14] VITALS: BP 122/65
--- NOTE | 2018-10-14 00:53 | NUR ---
PT. AWAKE AND ASSISTED BY DIRECTOR QUALITY SYSTEMS TO GO RESTROOM TO URINATE. NOTED PT. ABLE TO USE CALL LIGHT FOR HELP AND ABLE TO AMBULATE BY HIMSELF. NO COMPLAINTS DONE. CALL LIGHT WITH IN REACH.
--- NOTE | 2018-10-14 02:00 | NUR ---
SLEEPING. NO RESTLESSNESS. TELEMETRY MONITORING.
--- NOTE | 2018-10-14 04:07 | NUR ---
PT. BEEN AWAKE MOST OF NIGHT. REFUSED TO SLEEP" I AM WATCHING TV." ENCOURAGED TO SLEEP AND REST. TELEMETRY MONITORING. NO COMPLAINTS DONE. NO SOB. TELEMETRY MONITORING.
[2018-10-14 04:13] VITALS: BP 114/51
--- NOTE | 2018-10-14 04:30 | NUR ---
SLEEPING AT THIS TIME. CALL LIGHT WITH IN REACH. NO SOB. O RESTLESSNESS.
[2018-10-14 05:53] LABS: ANION GAP 8.6 (8-16); CARBON DIOXIDE 28.9 mmol/L (21-32); CREATININE 1.1 mg/dL (0.7-1.3); POTASSIUM 3.5 mmol/L (3.5-5.1)
[2018-10-14 06:04] LABS: PROTHROMBIN TIME 9.9 secs (10.8-13.4)
[2018-10-14 06:06] LABS: BASOPHILS % (AUTO) 0.5 % (0.0-2.0); EOSINOPHILS # (AUTO) 0.3 K/uL (0-0.4); EOSINOPHILS % (AUTO) 4.1 % (0.0-4.0); HEMATOCRIT 33.6 % (36-52); HEMOGLOBIN 10.7 g/dL (12.0-18.0); LYMPHOCYTES % (AUTO) 14.4 % (20.5-51.1); MEAN CORPUSCULAR HEMOGLOBIN 26 pg (27-31); MEAN CORPUSCULAR HGB CONC 32 g/dL (33-37); MEAN CORPUSCULAR VOLUME 80.2 fL (80-94); MONOCYTES # (AUTO) 0.7 K/uL (0.8-1.0); MONOCYTES % (AUTO) 9.5 % (1.7-9.3); NEUTROPHILS # (AUTO) 5.1 K/uL (1.8-7.7); NEUTROPHILS % (AUTO) 71.5 % (42.2-75.2); PLATELET COUNT (AUTO) 262 K/uL (140-450); RED BLOOD CELL COUNT(AUTO) 4.19 MIL/uL (4.20-6.10); RED CELL DISTRIBUTION WIDTH 18.1 % (11.6-13.7); WHITE BLOOD COUNT (AUTO) 7.2 K/uL (4.8-10.8)
--- NOTE | 2018-10-14 06:06 | NUR ---
SLEEPING. NO COMPLAINTS DONE. TELEMETRY MONITORING. CALL LIGHT WITH IN REACH. ABLE TO USE CALL LIGHT FOR HELP. NO SOB OR CHEST PAIN COMPLAINTS THIS SHIFT.
[2018-10-14 06:12] LABS: THYROID STIMULATING HORMONE 1.06 uIU/mL (0.34-3.74)
--- NOTE | 2018-10-14 07:10 | NUR ---
PATIENT RESTING IN BED. NO ACUTE DISTRESS NOTED. ALERT AND ORIENTED. DENIES PAIN AT THIS TIME. NO ACUTE RESPIRATORY DISTRESS NOTED. AMBULATORY WITH STANDBY ASSIST.
[2018-10-14 08:00] VITALS: BP 134/64
[2018-10-14] MEDS ORDERED: ENALAPRIL 10 MG TAB PO SCH (09:00)
[2018-10-14] MEDS ORDERED: HYDROCHLOROTHIAZIDE 25 MG TAB PO SCH (09:00)
[2018-10-14] MEDS ORDERED: BACLOFEN 10 MG TAB PO SCH (09:00)
[2018-10-14] MEDS ORDERED: ASPIRIN 81 MG TAB.CHEW PO SCH (09:00)
[2018-10-14] MEDS ORDERED: PANTOPRAZOLE 40 MG TABEC PO SCH (09:00)
[2018-10-14] MEDS ORDERED: FUROSEMIDE 40 MG/4 ML VIAL IVP SCH (09:00)
[2018-10-14] MEDS ORDERED: ENOXAPARIN 30 MG/0.3 ML SYR SUBQ SCH (09:00)
--- NOTE | 2018-10-14 09:20 | NUR ---
PATIENT HAS BEEN SCREENED AND CATEGORIZED MODERATE NUTRITION RISK. PATIENT WILL BE SEEN WITHIN 3-5 DAYS OF ADMISSION. 10/16/18[address]
--- NOTE | 2018-10-14 11:30 | NUR ---
PATIENT SEEN BY DR. KINCAID, AWAITING PT EVALUATION. NO ACUTE DISTRESS NOTED.
--- NOTE | 2018-10-14 11:55 | NUR ---
CONTACTED [facility] [phone] TO SET UP FOLLOW UP VISIT, SPOKE TO RODERICK. SHE PROVIDED ME OCTOBER 26, 2018 AT 1300. COPY OF APPOINTMENT PROVIDED TO THE PATIENT.
[2018-10-14 12:00] VITALS: BP 117/60
--- NOTE | 2018-10-14 14:06 | NUR ---
PATIENT SEEN BY PT AT BEDSIDE. UNSTEADY GAIT NOTED. DISCHARGE PLANNING FOR PT.
[2018-10-14] MEDS: ACETAMINOPHEN 325 MG TAB PO PRN (15:30)
[2018-10-14 16:00] VITALS: BP 112/59
--- NOTE | 2018-10-14 16:40 | NUR ---
PATIENT BEING TRANSFERRED TO [facility]. SBAR REPORT GIVEN TO TERESSA DIAZ. PATIENT TO TRANSFER TO ROOM 7C. DISCHARGE INSTRUCTIONS AND FOLLOW UP TEACHING GIVEN TO PATIENT, VERBALIZED UNDERSTANDING. DISCHARGE PRESCRIPTIONS GIVEN TO PATIENT, MEDICATIONS RECEIVED FROM PHARMACY, GIVEN TO PATIENT. AWAITING PREMIERE TRANSPORT. NO ACUTE DISTRESS NOTED AT THIS TIME.
--- NOTE | 2018-10-14 16:44 | NUR ---
Commissioner Of Conciliation Note: I faxed inquiry to [facility]. Per Ofe from [facility] , patient has been accepted and may go to room 7C today, accepting MD is . Ofe is able to accommodate patient if he requires shelter placement. Ofe came to evaluate/meet patient at hospital.
--- NOTE | 2018-10-14 16:50 | NUR ---
PREMIER TRANSPORT ARRANGED FOR 8PM DIRECTOR OF CONVENTION SERVICES WHEELCHAIR PER [place], , [facility] [id number]
--- NOTE | 2018-10-14 19:17 | NUR ---
SBAR REPORT GIVEN AT PT BEDSIDE. PATIENT RESTING IN BED. NO ACUTE DISTRESS NOTED.
--- NOTE | 2018-10-14 19:18 | NUR ---
REPORT RECEIVED FROM AM NURSE AT BEDSIDE. PT IN STABLE CONDITION. AAOX4. INTRODUCED SELF TO PT. BOARD UPDATED. NO COMPLAINTS OF PAIN. NO SOB. AFEBRILE. PT IS AMBULATORY. PT IS BEING TRANSFERRED TO [facility] FOR GAIT TRAINING. GOING TO ROOM 7C. PREMIER TO HAND LEATHER TRIMMER PT@1999. IV SITE WILL BE D/C. BED LOCKED IN LOW POSITION. CALL [facility]ITA WITHIN REACH. SAFETY PRECAUTION IN PLACE. ALL NEEDS MET AT THIS TIME.
[2018-10-14 20:00] VITALS: BP 114/50
--- NOTE | 2018-10-14 20:10 | NUR ---
RECEIVED PATIENT ON ROOM AIR, PULSE OX SAT 97%. PATIENT DENIES SOB. PRN BREATHING TREATMENT NOT INDICATED AT THIS TIME. NO RESPIRATORY DISTRESS NOTED AT THIS TIME. WILL CONTINUE TO MONITOR.
--- NOTE | 2018-10-14 21:55 | NUR ---
PREMIER IN TO HOME SERVICE CONSULTANT PATIENT. IV REMOVED. CANNULA INTACT. WRIST BAND REMOVED. PT IN STABLE CONDITION. TO [address] ALL BELONGINGS TAKEN. Addendum: 10/14/18 at 2205 by Francisco J Thomas RN TELE REMOVED.
--- NOTE | 2018-10-15 10:57 | NUR ---
CONTACTED [facility] [phone] TO CANCEL FOLLOW UP VISIT FOR OCTOBER 26, 2018 AT 1300. SPOKE TO RODERICK, SHE CONFIRMED THE CANCELLATION.
== END 2018-10-14 21:55 | DRG 194 ==
LOC: MED 13:00 → MTU 15:41
PROVIDERS: ADMIT Internal Medicine Pulmonary Disease; ATTEND Internal Medicine Pulmonary Disease
DX: I13.0 Hypertensive heart and chronic kidney disease with heart failure and stage 1 through stage 4 chronic kidney disease, or unspecified chronic kidney disease (principal); N17.0 Acute kidney failure with tubular necrosis; G62.9 Polyneuropathy, unspecified; I50.43 Acute on chronic combined systolic (congestive) and diastolic (congestive) heart failure; K21.9 Gastro-esophageal reflux disease without esophagitis; N18.2 Chronic kidney disease, stage 2 (mild); Z95.0 Presence of cardiac pacemaker; Z79.82 Long term (current) use of aspirin; Z79.899 Other long term (current) drug therapy; E44.1 Mild protein-calorie malnutrition
CPT/HCPCS: 36415; 71045; 80048; 80053; 80305; 81003; 82150; 83036; 83690; 83735; 83880; 84436; 84443; 84484; 85025; 85379; 85610; 85730; 87081; 93005; 93970; 97116; 97161-GP; 97530; 99285; G0482; J1650; J1940; Q0092